=== PATIENT | female | born 1950 | race Two or more races ===

== ENCOUNTER 2018-08-12 19:56 | Emergency (ER) | payer OTHER, MEDICAID ==
[~2018-08-12] VITALS: Ht 154.9 cm; Wt 54.0 kg
[2018-08-12 21:25] LABS: Basophils # (auto) 0 uL; Basophils % (auto) 0.5 % (0.0-2.0); Eosinophils # (auto) 0.1 uL; Eosinophils % (auto) 1.4 % (0.0-7.0); Hemoglobin 12.2 g/dL (12.2-16.2); Lymphocytes # (auto) 2.4 uL; Lymphocytes % (auto) 35.3 % (10.0-50.0); Mean Corpuscular Hemoglobin 25.5 pg (28.0-32.0); Mean Corpuscular Hgb Conc. 32.9 g/dL (32.0-36.0); Mean Corpuscular Volume 77.5 fL (80.0-100.0); Monocytes # (auto) 0.8 uL; Monocytes % (auto) 11.7 % (0.0-12.0); Neutrophils # (auto) 3.4 uL; Neutrophils % (auto) 51.1 % (37.0-80.0); Nucleated Red Blood Cells % 0.1 %; Platelet Count (auto) 260 10^3/uL (140-450); Red Blood Cells 4.78 10^6/uL (4.0-5.20); White Blood Cell 6.7 10^3/uL (4.4-10.8)
[2018-08-12 21:46] LABS: Alanine Aminotransferase 28 U/L (13-56); Albumin 3.7 g/dL (3.4-5.0); Anion Gap 5 (5-15); BUN/Creatinine Ratio 30.5; Blood Urea Nitrogen 18 mg/dL (7-18); Calcium 8.6 mg/dL (8.5-10.1); Carbon Dioxide 30 mmol/L (21-32); Chloride 102 mmol/L (98-107); GFR African American > 60 mL/min; GFR Non-African American > 60 mL/min; Glucose 169 mg/dL (74-106); Potassium 3.4 mmol/L (3.5-5.1); Sodium 137 mmol/L (136-145)
[2018-08-12 21:51] LABS: INR 0.93 (0.9-1.15); Partial Thromboplastin Time 27.6 sec (23.78-33.04)
[2018-08-12 21:58] LABS: Alkaline Phosphatase 54 U/L (45-117); Aspartate Aminotransferase 15 U/L (15-37); Bilirubin, Total 0.4 mg/dL (0.2-1.0)
[2018-08-12 23:44] VITALS: BP 124/53
[2018-08-13] MEDS ORDERED: MECLIZINE HCL 25 MG TAB ONE (01:30)
[2018-08-13] MEDS ORDERED: IOHEXOL 350 MG/ML 100ML IJ ONE (02:05)
== END 2018-08-13 01:52 | disposition home or self-care (01) ==
LOC: ER 19:58
DX: R42 Dizziness and giddiness (principal); R79.1 Abnormal coagulation profile; I11.0 Hypertensive heart disease with heart failure; I50.9 Heart failure, unspecified; E11.9 Type 2 diabetes mellitus without complications
CPT/HCPCS: 36415; 70450; 80053; 82962; 83735; 83880; 85025; 85379; 85610; 85730; 99284; J8597; Q9967